=== PATIENT | male | born 1985 | race Caucasian/White ===

== ENCOUNTER → 2016-07-03 | Outpatient (CLI) | payer OTHER ==
--- NOTE | 2016-07-09 12:54 | CDE ---
ADMIT: 07/03/2016 RM/LOC: ADTC[facility] MR#: [id number] [address] [facility] [address] [place] [id number] TONG JOHNSON [address] [place] [id number] Chemical Dependency Evaluation SEX: M AGE: 31 : 1985 A. DEMOGRAPHICS: NAME: Tong Johnson DATE OF : 1985 EVALUATING COUNSELOR: RAMÓN Vega LADC DATE OF EVALUATION: 07/03/2016 B. PRESENTING PROBLEM/CHIEF COMPLAINT: Client reported he is currently on probation for a child case. He wasn't sure if it was neglect or abuse. His chief science officer, Dary Herrera, recommended him to come in for this evaluation due to having dirty UAs. C. MEDICAL HISTORY: Client denies any illnesses, accidents, injuries, or operations. He has not been seen by doctor other than for a job physical and has no health concerns. D. WORK/SCHOOL/ HISTORY: Client reported he got his GED and he has one year of college; however, his funding ran out, so he did not return to college. He was employed with [employer] from September to December in 2015. It was seasonal, so he is no longer working there. He does start tomorrow at [employer] in [place] and expects to work 40+ hours per week. He denies being in the . E. ALCOHOL/DRUG ASSESSMENT SUMMARY: ALCOHOL: Age of first use for alcohol was 14. He stated it was occasional until age 20 and then he began going to the bars. He stated he drank heavier; however, he did not really like drinking, so he did not drink for very long. Date of last use was April of 2016 when he had three beers. MARIJUANA: Age of first use was 11. He stated he has always been a daily smoker up until July of 2015, which is when he got his son taken away from him. Since that time, he has smoked occasionally. His date of last use was a month ago. COCAINE: Age of first use was 17. He stated for one month, he used heavily on a daily basis. He was working for the [employer] at that time, and has not used any since 2004. METHAMPHETAMINE: Age of first use was 17. He stated the first time he used it was also when he was working for the [employer]. He came back from the [employer] to get out of the [employer] scene and he stated he used for approximately one year on a daily basis and used a gram a day. Date of last use was in 2005. HALLUCINOGENS: Age of first use was 20. He stated he tried mushrooms one time and that was back in 2005. HEROIN: No use reported. PRESCRIPTION DRUGS: He used them as directed when he had teeth pain. OTHER DRUGS (INHALANTS, OVER THE COUNTER, ETC): No use reported. NICOTINE: Age of first use was 11. He stated he smokes a pack a day. ADMIT: 07/03/2016 RM/LOC: ADTC.GI [facility] MR#: [id number] [address] [place] [id number] TONG JOHNSON [address] [place] [address] Chemical Dependency Evaluation SEX: M AGE: 31 : 1985 Negative consequences include: He lost his son, his gave him the ultimatum that it was either drugs or her, he has not had jobs, which has caused financial problems and some legal problems. F. LEGAL HISTORY: He has had several traffic tickets through the years. He has had two shoplifting charges and was fined on both of them. At age 17, he was charged with misdemeanor criminal mischief and on his 22rd birthday, he had a DUI and lost his license for 90 days and he is currently on probation for the [facility] case. G. FAMILY/SOCIAL/PEER HISTORY: Client reported his parents in 1993. At that time, he went to live with his dad in [place]. His dad was remarried and Tong was sent to a [employer] boys home in [place] until age of 15, when he came back and lived with his mother. He stated his relationship with his mom is strained, and that she contacts him only when she needs something. His relationship with his dad is distant, and he does not talk to him on a regular basis. He has two children, a daughter, age 12, who lives with her mother and a son who is age 5, who was taken from him and his last year. He is currently and has been for four years. Client stated he is not particular on whom he associates with. He will give anyone a chance, however, the majority of his friends are nonusers. H. PSYCHIATRIC/BEHAVIORAL HISTORY: Client denies ever being under any inpatient or outpatient care for behavioral or mental health. I. COLLATERAL INFORMATION: I have not contacted anyone as of yet. THE DRINKER TYPE RATING: Is a measure of how the client perceives their own drinking and/or using. This rating is indicative of how resistant or accepting the person is to the drinking problem. The client chose their rating from the following classifications: ALCOHOL Total Abstainer Light Social (non-problem) Drinker Moderate Social (non-problem) Drinker User Heavy Social (non-problem)Drinker Problem Drinker Alcoholic ADMIT: 07/03/2016 RM/LOC: ADTC.GI [facility] MR#: [id number] [address] [place] [phone] TONG JOHNSON [address] [place] [id number] Chemical Dependency Evaluation SEX: M AGE: 31 : 1985 OTHER DRUG Nonuser Light Social (non-problem) User Moderate Social (non-problem) User Heavy Social (non-problem) User Problem User Addicted/Dependent He circled a light social nonproblem drinker and a moderate social nonproblem user. SUBSTANCE ABUSE SUBTLE SCREENING INVENTORY (SASSI): The SASSI is an assessment tool specifically designed to provide a clearer picture of what lies beneath the facade presented by most patients or clients. Scores on this assessment aid in distinguishing nonabusers from abusers, alcoholics from drug abusers and nondefensive clients from defensive ones. The incorporation of a "denial scale" further enhances the ability to make an accurate recommendation. Client scores are: Face Valid Alcohol (FVA): 0. Face Valid Other Drugs (FVOD): 8. Symptoms (SYM): 4. Obvious Attributes (OAT): 4. Subtle Attributes (SAT): 4. Defensiveness (DEF): 9. Supplemental Addiction Measure (SUZETTE): 10. Family versus Controls (FAM): 10. Correctional (COR): 5. Random Answering Pattern (RAP):0. These scores would indicate that he has a high probability of having substance dependence disorder. We administered the ASI. Please see attached summary sheet. K. CLINICAL IMPRESSION: Client was very talkative and appeared to be open to any questions that I had. He was asked about his high defensive score and he said he has hard time trusting authority right now because of the [facility] case he is in. His DSM diagnosis is 304.30, cannabis use disorder, severe. L. RECOMMENDATIONS PRESENTED TO CLIENT: It is recommended that client participate in an outpatient treatment program. He is just starting a job, so the least restrictive recommendation is outpatient ADMIT: 07/03/2016 RM/LOC: [facility] MR#: [id number] [address] [id number] TONG JOHNSON [address] [place] [id number] Chemical Dependency Evaluation SEX: M AGE: 31 : 1985 treatment. It is also recommended that he attend NA meetings, and abstain from all mood altering substances. M. CLIENT/FAMILY RESPONSE: He is in agreement with this. [facility] CLINICAL ASSESSMENT CRITERIA: Low/Medium/High Dimension 1 = Intoxication and Withdrawal (i.e. history of withdrawal, level of current use): Low. Dimension 2 = Medical (i.e. , diabetes, medications, chronic conditions): Low. Dimension 3 = Emotional/Behavior Conditions (i.e. psych history, impulsivity, depression, anxiety, trauma history): Medium. Dimension 4 = Treatment Acceptance/Resistance (i.e. past history, minimization/blame, acknowledgement of problem, pressure to seek treatment, does not feel they have a problem): Medium. Dimension 5 = Relapse Potential (i.e. inability to abstain, use despite consequences, significant preoccupation, relapse despite outpatient treatment attempts): Medium. Dimension 6 = Recovery/Living Environment (i.e. current users reside in environment, family attitude, lack of consistent adult support in living environment, high exposure to using in social/work environment): Medium. CRIMINOGENIC RISK FACTORS: Low/Moderate/High Antisocial Attitudes: Medium. Antisocial Peers: Low. Self Control Skills: Medium. Family Dysfunction: Medium. Past Criminality: Low. RAMÓN Vega,MARGIE/ mary kay JOB #: [id number] CC:
== END | disposition home or self-care (01) ==
LOC: ADTC.GI 08:40
DX: F12.20 Cannabis dependence, uncomplicated (principal)